=== PATIENT | male | born 1975 | race African-American/Black ===

== ENCOUNTER 2016-06-21 04:51 | Inpatient (IN) | payer OTHER ==
[2016-06-21] VITALS (55 sets, daily range): BP systolic 124–182; RESP 18–39; TEMP 96.7–98; Ht 182.9 cm; Wt 99.8 kg
[~2016-06-21] VITALS: Ht 182.9 cm; Wt 99.8 kg
[2016-06-21] MEDS ORDERED: LABETALOL 100 MG/20 ML VIAL ONE (05:11)
[2016-06-21] MEDS ORDERED: cloNIDine 0.1 MG TAB ONE (05:11)
[2016-06-21] MEDS ORDERED: METHYLPRED SOD SUCC 125 MG/2 ML VIAL ONE (05:11)
[2016-06-21] MEDS ORDERED: SODIUM CHLORIDE 0.9% 1,000 ML ONE (05:12)
[2016-06-21] MEDS ORDERED: NEB-ALBUTEROL 2.5 MG/3 ML INH ONE (05:14)
[2016-06-21] MEDS ORDERED: DUONEB INH ONE (05:14)
[2016-06-21] MEDS ORDERED: NITROGLYCERIN/D5W 250 ML IV ONE (06:00)
[2016-06-21] MEDS ORDERED: DILAUDID 1 MG/ML AMP ONE (06:23)
[2016-06-21] MEDS ORDERED: NITROGLYCERIN 50 MG/250 ML 250 ML IV SCH (08:00)
[2016-06-21] MEDS ORDERED: ONDANSETRON 4 MG VIAL IV PRN (08:00)
[2016-06-21] MEDS ORDERED: BISACODYL 10 MG SUPP RECTAL PRN (08:00)
[2016-06-21] MEDS ORDERED: MAG HYDROX 30 ML UDC PO PRN (08:00)
[2016-06-21] MEDS ORDERED: SALINE FLUSH 10 ML FLUSH PRN (08:00)
[2016-06-21] MEDS ORDERED: ACETAMINOPHEN 325 MG TAB PO PRN (08:00)
[2016-06-21] MEDS ORDERED: ZOLPIDEM 5 MG TAB PO PRN (09:05)
[2016-06-21] MEDS: ENOXAPARIN 30 MG/0.3 ML SYR SUBQ SCH (09:14)
[2016-06-21] MEDS: SALINE FLUSH 10 ML FLUSH SCH ×2 (09:14→20:01)
[2016-06-21] MEDS: FAMOTIDINE 20 MG TAB PO SCH ×2 (09:14→20:01)
[2016-06-21] MEDS ORDERED: amLODIPine 5 MG TAB PO ONE (09:22)
[2016-06-21] MEDS ORDERED: CHLORTHALIDONE 25 MG TAB PO ONE (09:22)
[2016-06-21] MEDS ORDERED: MISSING DOSE XX ONE ×2 (10:50→12:50)
[2016-06-21] MEDS: CITALOPRAM 20 MG TAB PO SCH (11:19)
[2016-06-21] MEDS: NEB-XOPENEX 1.25 MG/3 ML INH SCH ×3 (11:42→23:31)
[2016-06-21] MEDS ORDERED: NEB-ALBUTEROL 2.5 MG/3 ML INH PRN (17:15)
[2016-06-21] MEDS: TRAMADOL 50 MG TAB PO PRN (17:59)
[2016-06-21] MEDS: NEB-BUDESONIDE 0.5 MG INH SCH (19:09)
[2016-06-21] MEDS: amLODIPine 5 MG TAB PO SCH (20:01)
[2016-06-22] VITALS (53 sets, daily range): BP systolic 121–164; RESP 14–92; TEMP 95.4–97.9
[2016-06-22] MEDS: TRAMADOL 50 MG TAB PO PRN (05:15)
[2016-06-22] MEDS: SODIUM CHLORIDE 0.9% FLUSH BAG 500 ML IV SCH (05:16)
[2016-06-22] MEDS: niCARdipine INJ 25 MG in SODIUM CHLORIDE 0.9% 240 ML IV PRN ×3 (05:26→20:39)
[2016-06-22] MEDS: NEB-BUDESONIDE 0.5 MG INH SCH ×2 (07:09→18:35)
[2016-06-22] MEDS: NEB-XOPENEX 1.25 MG/3 ML INH SCH ×3 (07:09→18:35)
[2016-06-22] MEDS: SALINE FLUSH 10 ML FLUSH SCH ×2 (08:27→20:38)
[2016-06-22] MEDS: CITALOPRAM 20 MG TAB PO SCH (08:27)
[2016-06-22] MEDS: FAMOTIDINE 20 MG TAB PO SCH ×2 (08:27→20:38)
[2016-06-22] MEDS: CHLORTHALIDONE 25 MG TAB PO SCH (08:27)
[2016-06-22] MEDS: amLODIPine 5 MG TAB PO SCH ×2 (08:27→20:38)
[2016-06-22] MEDS: ENOXAPARIN 30 MG/0.3 ML SYR SUBQ SCH ×2 (09:00→10:56)
[2016-06-22] MEDS ORDERED: MISSING DOSE XX ONE ×2 (10:35→17:40)
[2016-06-22] MEDS: Carvedilol 3.125 MG TAB PO SCH ×2 (12:15→20:38)
[2016-06-23] VITALS (41 sets, daily range): BP systolic 123–173; RESP 15–25; TEMP 95.9–98
[2016-06-23] MEDS: NEB-XOPENEX 1.25 MG/3 ML INH SCH ×5 (00:15→23:51)
[2016-06-23] MEDS ORDERED: MISSING DOSE XX ONE ×2 (01:25→08:15)
[2016-06-23] MEDS: niCARdipine INJ 25 MG in SODIUM CHLORIDE 0.9% 240 ML IV PRN ×2 (01:33→09:49)
[2016-06-23] MEDS: SODIUM CHLORIDE 0.9% FLUSH BAG 500 ML IV SCH (04:13)
[2016-06-23] MEDS: NEB-BUDESONIDE 0.5 MG INH SCH ×2 (07:05→19:13)
[2016-06-23] MEDS: Carvedilol 3.125 MG TAB PO SCH (08:07)
[2016-06-23] MEDS: FAMOTIDINE 20 MG TAB PO SCH ×2 (08:07→20:07)
[2016-06-23] MEDS: CITALOPRAM 20 MG TAB PO SCH (08:07)
[2016-06-23] MEDS: CHLORTHALIDONE 25 MG TAB PO SCH (08:07)
[2016-06-23] MEDS: amLODIPine 5 MG TAB PO SCH ×2 (08:07→20:07)
[2016-06-23] MEDS: SALINE FLUSH 10 ML FLUSH SCH ×2 (08:08→20:09)
[2016-06-23] MEDS: ENOXAPARIN 30 MG/0.3 ML SYR SUBQ SCH (08:09)
[2016-06-23] MEDS ORDERED: Carvedilol 3.125 MG TAB PO ONE (09:25)
[2016-06-23] MEDS: NEBIVOLOL 10 MG TAB PO SCH (14:44)
[2016-06-23] MEDS ORDERED: Carvedilol 6.25 MG TAB PO SCH (21:00)
[2016-06-24] VITALS (19 sets, daily range): BP systolic 139–173; RESP 14–23; TEMP 97.3–98
[2016-06-24] MEDS: SODIUM CHLORIDE 0.9% FLUSH BAG 500 ML IV SCH (06:00)
[2016-06-24] MEDS: NEB-XOPENEX 1.25 MG/3 ML INH SCH ×4 (06:43→23:34)
[2016-06-24] MEDS: NEB-BUDESONIDE 0.5 MG INH SCH ×2 (06:43→18:43)
[2016-06-24] MEDS: SALINE FLUSH 10 ML FLUSH SCH ×2 (08:09→20:12)
[2016-06-24] MEDS: ENOXAPARIN 30 MG/0.3 ML SYR SUBQ SCH (08:10)
[2016-06-24] MEDS: amLODIPine 5 MG TAB PO SCH ×2 (08:11→20:13)
[2016-06-24] MEDS: NEBIVOLOL 10 MG TAB PO SCH (08:11)
[2016-06-24] MEDS: CITALOPRAM 20 MG TAB PO SCH (08:11)
[2016-06-24] MEDS: CHLORTHALIDONE 25 MG TAB PO SCH (08:11)
[2016-06-24] MEDS: FAMOTIDINE 20 MG TAB PO SCH ×2 (08:11→20:13)
[2016-06-25 00:06] VITALS: BP_SYST 162
[2016-06-25 03:00] VITALS: BP_SYST 192; RESP 18; TEMP 97.9
[2016-06-25] MEDS: SODIUM CHLORIDE 0.9% FLUSH BAG 500 ML IV SCH (04:00)
[2016-06-25] MEDS: NEB-BUDESONIDE 0.5 MG INH SCH (06:52)
[2016-06-25] MEDS: NEB-XOPENEX 1.25 MG/3 ML INH SCH (06:53)
[2016-06-25] MEDS ORDERED: NEB-ALBUTEROL 2.5 MG/3 ML INH PRN (07:00)
[2016-06-25 07:45] VITALS: BP_SYST 171; RESP 18; TEMP 98.1
[2016-06-25] MEDS: SALINE FLUSH 10 ML FLUSH SCH (08:18)
[2016-06-25] MEDS: CITALOPRAM 20 MG TAB PO SCH (08:19)
[2016-06-25] MEDS: ENOXAPARIN 30 MG/0.3 ML SYR SUBQ SCH (08:19)
[2016-06-25] MEDS: NEBIVOLOL 10 MG TAB PO SCH (08:19)
[2016-06-25] MEDS: amLODIPine 5 MG TAB PO SCH (08:19)
[2016-06-25] MEDS: FAMOTIDINE 20 MG TAB PO SCH (08:20)
[2016-06-25] MEDS ORDERED: HCTZ PO SCH (09:00)
[2016-06-25] MEDS ORDERED: VALSARTAN 80 MG TAB PO SCH (09:00)
[2016-06-25] MEDS ORDERED: SPIRONO PO SCH (09:00)
[2016-06-25 11:24] VITALS: BP_SYST 156; RESP 18; TEMP 97.8
[2016-06-25 11:25] VITALS: BP_SYST 156; RESP 18; TEMP 97.8
[2016-06-25 11:30] VITALS: BP_SYST 156; RESP 18; TEMP 97.8
== END 2016-06-25 12:10 | disposition home or self-care (01) | DRG 304 ==
LOC: ENRESERVTM → ENRESERVDT → ER 04:51 → EMR 06:26 → ENPENDDIS 06:26 → CCU 07:22 → PCU 06-24 14:16
PROVIDERS: ADMIT Internal Medicine; ATTEND Internal Medicine
DX: I16.0 Hypertensive urgency (principal); I50.33 Acute on chronic diastolic (congestive) heart failure; N17.9 Acute kidney failure, unspecified; N18.3 Chronic kidney disease, stage 3 (moderate); K75.9 Inflammatory liver disease, unspecified; D86.9 Sarcoidosis, unspecified; G47.33 Obstructive sleep apnea (adult) (pediatric); I13.0 Hypertensive heart and chronic kidney disease with heart failure and stage 1 through stage 4 chronic kidney disease, or unspecified chronic kidney disease; K21.9 Gastro-esophageal reflux disease without esophagitis; F32.9 Major depressive disorder, single episode, unspecified; Z87.891 Personal history of nicotine dependence; G47.00 Insomnia, unspecified
CPT/HCPCS: 36415; 71010; 71250; 76770; 80048; 80053; 80076; 81001; 82248; 82553; 83735; 83880; 84100; 84484; 85025; 85610; 85730; 86804; 93005; 93306; 94640; 94799; 96361; 96365; 96375; 99223; 99233; 99238; 99291